=== PATIENT | male | born 1955 | race Caucasian/White ===

== ENCOUNTER 2017-01-21 14:37 | Inpatient (IN) | payer OTHER ==
[~2017-01-21] VITALS: Ht 190.5 cm; Wt 107.3 kg
[2017-01-21] MEDS ORDERED: HydrOXYzine PAMOATE 50 MG CAPSULE PO PRN (17:15)
[2017-01-21] MEDS ORDERED: LOPERAMIDE HCL 2 MG CAPSULE PO PRN (17:15)
[2017-01-21] MEDS ORDERED: QUEtiapine FUMARATE 100 MG TABLET PO PRN (17:15)
[2017-01-21] MEDS ORDERED: ACETAMINOPHEN 325 MG TABLET PO PRN (17:15)
[2017-01-21] MEDS ORDERED: TUBERCULIN, PURIFIED PROTEIN DERIVATIVE 5 TU/0.1 ML SYG ID ONE (17:15)
[2017-01-21] MEDS ORDERED: GuaiFENesin/D-METHORPHAN [SUGAR-FREE] 200-20MG/10 ML SYRUP UDCUP PO PRN (17:15)
[2017-01-21] MEDS ORDERED: PROMETHAZINE HCL 25 MG TABLET PO PRN (17:15)
[2017-01-21] MEDS ORDERED: MAG HYDROX/AL HYDROX/SIMETH ES 30 ML SUSPENSION UDCUP PO PRN (17:15)
[2017-01-21] MEDS ORDERED: MAGNESIUM HYDROXIDE SUSPENSION 30 ML UDCUP PO PRN (17:15)
[2017-01-21] MEDS ORDERED: DULO30CA2 PO (17:39)
[2017-01-21] MEDS ORDERED: ATOR20TA86 PO (17:39)
[2017-01-21] MEDS ORDERED: HYDR25TA PO (17:39)
[2017-01-21] MEDS ORDERED: TAMS0.4C32 PO (17:39)
[2017-01-21] MEDS ORDERED: DIVA500T52 PO (17:39)
[2017-01-21] MEDS ORDERED: QUET25TA PO (17:39)
[2017-01-21] MEDS ORDERED: INFLUENZA VIRUS VACCINE QVS 2016-17 (3YR+)/PF 60 MCG/0.5 ML SYRINGE IM ONE (18:00)
[2017-01-21 18:42] VITALS: BP 142/76
[2017-01-21] MEDS ORDERED: POTASSIUM CHLORIDE 20 MEQ ER TABLET PO ONE (19:30)
[2017-01-21] MEDS: THIAMINE HCL 100 MG TABLET PO SCH (20:46)
[2017-01-22 00:56] VITALS: BP 159/99
[2017-01-22] MEDS: LORazepam 2 MG TABLET PO PRN ×3 (01:11→17:46)
[2017-01-22 08:20] LABS: BASOPHILS % (AUTO) 0.4 % (0.0-2.0); EOSINOPHILS % (AUTO) 1.3 % (1.0-6.0); HEMATOCRIT 42.8 % (41-53); HEMOGLOBIN 14.4 g/dL (13.5-17.5); LYMPHOCYTES # (AUTO) 1.2 K/uL (1.0-4.8); LYMPHOCYTES % (AUTO) 20.1 % (22.0-44.0); MEAN CORPUSCULAR HEMOGLOBIN 30.1 pg (26.0-34.0); MEAN CORPUSCULAR HGB CONC 33.7 G/dL (31.0-37.0); MEAN CORPUSCULAR VOLUME 89 fL (80-100); MONOCYTES # (AUTO) 0.6 K/uL (0.1-1.0); NEUTROPHILS # (AUTO) 3.9 K/uL (1.8-7.7); NEUTROPHILS % (AUTO) 67.2 % (40.0-70.0); PLATELET COUNT (AUTO) 255 K/uL (150-450); RED BLOOD CELL COUNT(AUTO) 4.79 MIL/uL (4.50-5.90); RED CELL DISTRIBUTION WIDTH 14.2 % (11.5-14.5); WHITE BLOOD COUNT (AUTO) 5.9 K/uL (4.5-11.0)
[2017-01-22 08:24] VITALS: BP 133/88
[2017-01-22] MEDS: ATORVASTATIN CALCIUM 20 MG TABLET PO SCH (09:27)
[2017-01-22] MEDS: FOLIC ACID 1 MG TABLET PO SCH (09:27)
[2017-01-22] MEDS: HYDROCHLOROTHIAZIDE 25 MG TABLET PO SCH (09:27)
[2017-01-22] MEDS: TAMSULOSIN HCL 0.4 MG CAPSULE PO SCH (09:27)
[2017-01-22] MEDS: THIAMINE HCL 100 MG TABLET PO SCH ×2 (09:28→17:46)
[2017-01-22] MEDS: MULTIVITAMINS WITH MINERALS, THERAPEUTIC TABLET PO SCH (09:28)
[2017-01-22 09:38] LABS: ALANINE AMINOTRANSFERASE 23 U/L (12-78); ALBUMIN 3.7 g/dL (3.4-5.0); ANION GAP 8 mmol/L (8-16); ASPARTATE AMINOTRANSFERASE 25 U/L (15-37); BILIRUBIN,TOTAL 0.4 mg/dL (0.1-1.0); CALCIUM, TOTAL 8.8 mg/dL (8.8-10.5); CARBON DIOXIDE 28 mmol/L (22-29); CHLORIDE 105 mmol/L (98-107); CHOL/HDL RATIO 2.9 (4.2-7.3); CREATININE 0.97 mg/dL (0.60-1.30); GLOMERULAR FILTR. RATE CALC > 60 mL/min (>60); POTASSIUM 4.5 mmol/L (3.5-5.1); SODIUM SERUM 141 mmol/L (136-145); TOTAL PROTEIN, SERUM 7.6 g/dL (6.4-8.2); UREA NITROGEN, BLOOD 17 mg/dL (7-18)
[2017-01-22 09:41] LABS: HEMOGLOBIN A1C 5.5 % (4.5-6.2)
[2017-01-22] MEDS ORDERED: OLANZapine 5 MG RAPDIS TABLET PO PRN (11:45)
[2017-01-22 16:00] VITALS: BP 139/92
[2017-01-22 19:30] VITALS: BP 138/84
[2017-01-22] MEDS: ZOLPIDEM TARTRATE 10 MG TABLET PO PRN (20:00)
[2017-01-22] MEDS: DIVALPROEX SODIUM 500 MG ER TABLET PO SCH (20:00)
[2017-01-22] MEDS: OLANZapine 5 MG RAPDIS TABLET PO SCH (20:00)
[2017-01-23 07:25] VITALS: BP 135/90
[2017-01-23 08:11] VITALS: BP 137/79
[2017-01-23] MEDS: HYDROCHLOROTHIAZIDE 25 MG TABLET PO SCH (09:52)
[2017-01-23] MEDS: MULTIVITAMINS WITH MINERALS, THERAPEUTIC TABLET PO SCH (09:52)
[2017-01-23] MEDS: THIAMINE HCL 100 MG TABLET PO SCH ×2 (09:52→17:04)
[2017-01-23] MEDS: FOLIC ACID 1 MG TABLET PO SCH (09:52)
[2017-01-23] MEDS: TAMSULOSIN HCL 0.4 MG CAPSULE PO SCH (09:52)
[2017-01-23] MEDS: ATORVASTATIN CALCIUM 20 MG TABLET PO SCH (09:52)
[2017-01-23] MEDS: LORazepam 2 MG TABLET PO PRN ×3 (09:53→20:39)
[2017-01-23] MEDS ORDERED: DIVA500T52 PO (14:05)
[2017-01-23] MEDS ORDERED: OLAN5Z PO (14:05)
[2017-01-23 16:00] VITALS: BP 138/78
[2017-01-23] MEDS: OLANZapine 5 MG RAPDIS TABLET PO SCH (20:39)
[2017-01-23] MEDS: DIVALPROEX SODIUM 500 MG ER TABLET PO SCH (20:39)
[2017-01-23] MEDS: ZOLPIDEM TARTRATE 10 MG TABLET PO PRN (20:39)
[2017-01-24 07:02] VITALS: BP 142/92
[2017-01-24 08:12] VITALS: BP 139/80
[2017-01-24] MEDS: TAMSULOSIN HCL 0.4 MG CAPSULE PO SCH (09:56)
[2017-01-24] MEDS: THIAMINE HCL 100 MG TABLET PO SCH (09:56)
[2017-01-24] MEDS: HYDROCHLOROTHIAZIDE 25 MG TABLET PO SCH (09:56)
[2017-01-24] MEDS: ATORVASTATIN CALCIUM 20 MG TABLET PO SCH (09:56)
[2017-01-24] MEDS: FOLIC ACID 1 MG TABLET PO SCH (09:56)
[2017-01-24] MEDS: MULTIVITAMINS WITH MINERALS, THERAPEUTIC TABLET PO SCH (09:56)
== END 2017-01-24 14:15 | disposition home or self-care (01) | DRG 885 ==
LOC: B3A 17:41
PROVIDERS: ADMIT Psychiatry & Neurology Psychiatry; ATTEND Psychiatry & Neurology Psychiatry
PROC: 3E0234Z Introduction of Serum, Toxoid and Vaccine into Muscle, Percutaneous Approach (ICD-10-PCS; principal; 2017-01-22)
DX: F31.2 Bipolar disorder, current episode manic severe with psychotic features (principal); N40.0 Benign prostatic hyperplasia without lower urinary tract symptoms; F90.9 Attention-deficit hyperactivity disorder, unspecified type; I10 Essential (primary) hypertension; E78.00 Pure hypercholesterolemia, unspecified; E78.5 Hyperlipidemia, unspecified; Z23 Encounter for immunization; Z91.19 Patient's noncompliance with other medical treatment and regimen; Z79.899 Other long term (current) drug therapy; Z91.5 Personal history of self-harm
CPT/HCPCS: 83036; 84439; 84443; 86592; 87081; 90471

== ENCOUNTER 2017-01-31 10:02 | Inpatient (IN) | payer OTHER ==
[~2017-01-31] VITALS: Ht 190.5 cm; Wt 102.1 kg
[~2017-01-31 10:02] MED LIST: ATOR20TA86 PO; DIVA500T52 PO; OLAN5Z PO; TAMS0.4C32 PO
[2017-01-31 12:57] VITALS: BP 137/100
[2017-01-31] MEDS ORDERED: PROMETHAZINE HCL 25 MG TABLET PO PRN (13:30)
[2017-01-31] MEDS ORDERED: GuaiFENesin/D-METHORPHAN [SUGAR-FREE] 200-20MG/10 ML SYRUP UDCUP PO PRN (13:30)
[2017-01-31] MEDS ORDERED: MAGNESIUM HYDROXIDE SUSPENSION 30 ML UDCUP PO PRN (13:30)
[2017-01-31] MEDS ORDERED: LOPERAMIDE HCL 2 MG CAPSULE PO PRN (13:30)
[2017-01-31] MEDS ORDERED: ACETAMINOPHEN 325 MG TABLET PO PRN (13:30)
[2017-01-31] MEDS ORDERED: MAG HYDROX/AL HYDROX/SIMETH ES 30 ML SUSPENSION UDCUP PO PRN (13:30)
[2017-01-31] MEDS ORDERED: HYDROCHLOROTHIAZIDE 25 MG TABLET PO SCH (14:00)
[2017-01-31] MEDS ORDERED: DIVA500T52 PO (14:12)
[2017-01-31] MEDS ORDERED: HYDR25TA PO (14:12)
[2017-01-31] MEDS ORDERED: OLAN5Z PO (14:12)
[2017-01-31] MEDS: HYDROCHLOROTHIAZIDE 25 MG TABLET PO SCH (15:14)
[2017-01-31] MEDS ORDERED: PNEUMOCOCCAL VACCINE POLYVALENT 0.5 ML VIAL [PPSV23] IM ONE (15:30)
[2017-01-31 16:00] VITALS: BP 140/82
[2017-01-31 18:01] VITALS: BP 139/95
[2017-01-31] MEDS: THIAMINE HCL 100 MG TABLET PO SCH (20:39)
[2017-01-31] MEDS: OLANZapine 5 MG RAPDIS TABLET PO SCH (20:39)
[2017-01-31] MEDS: ZOLPIDEM TARTRATE 10 MG TABLET PO PRN (20:40)
[2017-01-31] MEDS ORDERED: DIVALPROEX SODIUM 500 MG ER TABLET PO SCH (21:00)
[2017-02-01 06:44] LABS: BASOPHILS % (AUTO) 0.3 % (0.0-2.0); HEMOGLOBIN 14.6 g/dL (13.5-17.5); LYMPHOCYTES # (AUTO) 1.3 K/uL (1.0-4.8); LYMPHOCYTES % (AUTO) 15.3 % (22.0-44.0); MEAN CORPUSCULAR HEMOGLOBIN 29.4 pg (26.0-34.0); MEAN CORPUSCULAR HGB CONC 33.1 G/dL (31.0-37.0); MEAN CORPUSCULAR VOLUME 89 fL (80-100); MONOCYTES # (AUTO) 0.8 K/uL (0.1-1.0); MONOCYTES % (AUTO) 9.4 % (2.0-9.0); NEUTROPHILS # (AUTO) 6.1 K/uL (1.8-7.7); PLATELET COUNT (AUTO) 318 K/uL (150-450); RED BLOOD CELL COUNT(AUTO) 4.95 MIL/uL (4.50-5.90); RED CELL DISTRIBUTION WIDTH 14.1 % (11.5-14.5); WHITE BLOOD COUNT (AUTO) 8.5 K/uL (4.5-11.0)
[2017-02-01 07:09] LABS: ALANINE AMINOTRANSFERASE 47 U/L (12-78); ALBUMIN 3.9 g/dL (3.4-5.0); ANION GAP 10 mmol/L (8-16); ASPARTATE AMINOTRANSFERASE 34 U/L (15-37); BILIRUBIN,TOTAL 0.6 mg/dL (0.1-1.0); CALCIUM, TOTAL 9.1 mg/dL (8.8-10.5); CARBON DIOXIDE 28 mmol/L (22-29); CHLORIDE 103 mmol/L (98-107); CHOL/HDL RATIO 2.9 (4.2-7.3); CREATININE 1.15 mg/dL (0.60-1.30); GLOMERULAR FILTR. RATE CALC > 60 mL/min (>60); POTASSIUM 3.7 mmol/L (3.5-5.1); SODIUM SERUM 141 mmol/L (136-145); THYROID STIMULATING HORMONE 3.32 uIU/mL (0.36-3.74); TOTAL PROTEIN, SERUM 7.9 g/dL (6.4-8.2); UREA NITROGEN, BLOOD 16 mg/dL (7-18)
[2017-02-01 07:11] LABS: VALPROIC ACID < 3 mcg/mL (50-100)
[2017-02-01 08:00] VITALS: BP 143/109
[2017-02-01] MEDS: HYDROCHLOROTHIAZIDE 25 MG TABLET PO SCH (08:13)
[2017-02-01] MEDS: ATORVASTATIN CALCIUM 20 MG TABLET PO SCH (08:13)
[2017-02-01] MEDS: FOLIC ACID 1 MG TABLET PO SCH (08:13)
[2017-02-01] MEDS: MULTIVITAMINS WITH MINERALS, THERAPEUTIC TABLET PO SCH (08:13)
[2017-02-01] MEDS: TAMSULOSIN HCL 0.4 MG CAPSULE PO SCH (08:13)
[2017-02-01] MEDS: THIAMINE HCL 100 MG TABLET PO SCH ×2 (08:13→16:10)
[2017-02-01] MEDS: IBUPROFEN 800 MG TABLET PO PRN (08:18)
[2017-02-01] MEDS: LORazepam 2 MG TABLET PO PRN ×2 (08:18→15:30)
[2017-02-01] MEDS: OLANZapine 5 MG RAPDIS TABLET PO PRN (08:18)
[2017-02-01 08:22] LABS: HEMOGLOBIN A1C 5.8 % (4.5-6.2)
[2017-02-01] MEDS ORDERED: TAMSULOSIN HCL 0.4 MG CAPSULE PO SCH (09:00)
[2017-02-01] MEDS ORDERED: ATORVASTATIN CALCIUM 20 MG TABLET PO SCH (09:00)
[2017-02-01] MEDS: LISINOPRIL 10 MG TABLET PO SCH ×2 (10:22→16:09)
[2017-02-01 14:37] VITALS: BP 127/83
[2017-02-01 16:31] VITALS: BP 124/76
[2017-02-01] MEDS: OLANZapine 5 MG RAPDIS TABLET PO SCH (20:09)
[2017-02-02] MEDS: LORazepam 2 MG TABLET PO PRN ×2 (01:34→11:31)
[2017-02-02] MEDS: ZOLPIDEM TARTRATE 10 MG TABLET PO PRN ×2 (01:34→20:54)
[2017-02-02 01:51] VITALS: BP 140/72
[2017-02-02] MEDS: MULTIVITAMINS WITH MINERALS, THERAPEUTIC TABLET PO SCH (07:57)
[2017-02-02] MEDS: LISINOPRIL 10 MG TABLET PO SCH ×2 (07:57→16:01)
[2017-02-02] MEDS: THIAMINE HCL 100 MG TABLET PO SCH ×2 (07:58→16:01)
[2017-02-02] MEDS: HYDROCHLOROTHIAZIDE 25 MG TABLET PO SCH (07:58)
[2017-02-02] MEDS: ATORVASTATIN CALCIUM 20 MG TABLET PO SCH (07:59)
[2017-02-02] MEDS: TAMSULOSIN HCL 0.4 MG CAPSULE PO SCH (07:59)
[2017-02-02] MEDS: FOLIC ACID 1 MG TABLET PO SCH (07:59)
[2017-02-02 08:16] VITALS: BP 104/71
[2017-02-02] MEDS: OLANZapine 5 MG RAPDIS TABLET PO PRN (11:31)
[2017-02-02] MEDS: HydrOXYzine PAMOATE 50 MG CAPSULE PO PRN (11:31)
[2017-02-02 18:03] VITALS: BP 137/93
[2017-02-02] MEDS: OLANZapine 5 MG RAPDIS TABLET PO SCH (20:53)
[2017-02-03] MEDS: THIAMINE HCL 100 MG TABLET PO SCH ×2 (07:50→17:23)
[2017-02-03] MEDS: GABAPENTIN 400 MG CAPSULE PO SCH ×3 (07:50→17:23)
[2017-02-03] MEDS: LORazepam 2 MG TABLET PO PRN (07:50)
[2017-02-03] MEDS: IBUPROFEN 800 MG TABLET PO PRN (07:50)
[2017-02-03] MEDS: HydrOXYzine PAMOATE 50 MG CAPSULE PO PRN (07:50)
[2017-02-03] MEDS: LISINOPRIL 10 MG TABLET PO SCH ×2 (07:50→17:23)
[2017-02-03] MEDS: HYDROCHLOROTHIAZIDE 25 MG TABLET PO SCH (07:51)
[2017-02-03] MEDS: FOLIC ACID 1 MG TABLET PO SCH (07:51)
[2017-02-03] MEDS: TAMSULOSIN HCL 0.4 MG CAPSULE PO SCH (07:51)
[2017-02-03] MEDS: ATORVASTATIN CALCIUM 20 MG TABLET PO SCH (07:51)
[2017-02-03] MEDS: MULTIVITAMINS WITH MINERALS, THERAPEUTIC TABLET PO SCH (07:51)
[2017-02-03] MEDS: DULoxetine HCL 60 MG CAPSULE PO SCH (07:52)
[2017-02-03] MEDS: OLANZapine 5 MG RAPDIS TABLET PO PRN (07:54)
[2017-02-03 08:00] VITALS: BP 138/93
[2017-02-03 08:04] VITALS: BP 138/93
[2017-02-03 20:05] VITALS: BP 140/88
[2017-02-03] MEDS: OLANZapine 5 MG RAPDIS TABLET PO SCH (20:51)
[2017-02-04 08:04] VITALS: BP 151/102
[2017-02-04] MEDS: GABAPENTIN 400 MG CAPSULE PO SCH ×2 (08:08→12:10)
[2017-02-04] MEDS: LISINOPRIL 10 MG TABLET PO SCH (08:08)
[2017-02-04] MEDS: FOLIC ACID 1 MG TABLET PO SCH (08:08)
[2017-02-04] MEDS: MULTIVITAMINS WITH MINERALS, THERAPEUTIC TABLET PO SCH (08:08)
[2017-02-04] MEDS: HYDROCHLOROTHIAZIDE 25 MG TABLET PO SCH (08:09)
[2017-02-04] MEDS: THIAMINE HCL 100 MG TABLET PO SCH (08:10)
[2017-02-04] MEDS: DULoxetine HCL 60 MG CAPSULE PO SCH (08:10)
[2017-02-04] MEDS: ATORVASTATIN CALCIUM 20 MG TABLET PO SCH (08:10)
[2017-02-04] MEDS: TAMSULOSIN HCL 0.4 MG CAPSULE PO SCH (08:11)
[2017-02-04] MEDS ORDERED: GABA-533 PO (09:47)
[2017-02-04] MEDS ORDERED: LISI-662 PO (09:56)
[2017-02-04] MEDS ORDERED: LISINOPRIL 20 MG TABLET PO SCH (17:00)
== END 2017-02-04 12:45 | disposition home or self-care (01) | DRG 885 ==
LOC: B3A 13:24 → UNDOADMIN 13:27 → B3A 13:27 → EDSTATUS 13:58 → 3EC 17:10 → B3A 17:10
PROVIDERS: ADMIT Psychiatry & Neurology Psychiatry; ATTEND Psychiatry & Neurology Psychiatry
PROC: 3E0234Z Introduction of Serum, Toxoid and Vaccine into Muscle, Percutaneous Approach (ICD-10-PCS; principal; 2017-01-31)
DX: F31.2 Bipolar disorder, current episode manic severe with psychotic features (principal); F15.20 Other stimulant dependence, uncomplicated; E78.5 Hyperlipidemia, unspecified; F90.9 Attention-deficit hyperactivity disorder, unspecified type; G47.30 Sleep apnea, unspecified; E78.00 Pure hypercholesterolemia, unspecified; S01.419A Laceration without foreign body of unspecified cheek and temporomandibular area, initial encounter; N40.0 Benign prostatic hyperplasia without lower urinary tract symptoms; S00.12XA Contusion of left eyelid and periocular area, initial encounter; Z79.899 Other long term (current) drug therapy; Z91.19 Patient's noncompliance with other medical treatment and regimen; Z23 Encounter for immunization; X58.XXXA Exposure to other specified factors, initial encounter; Y93.89 Activity, other specified; Y92.89 Other specified places as the place of occurrence of the external cause; Y99.8 Other external cause status
CPT/HCPCS: 71020; 83036; 84439; 84443; 86592; 94660

== ENCOUNTER 2017-02-04 18:43 | Emergency (ER) | payer OTHER ==
[~2017-02-04 18:43] MED LIST changes: +GABA-533 PO; +HYDR25TA PO; +LISI-662 PO
== END 2017-02-04 20:00 | disposition left against medical advice (07) ==
LOC: EMS 18:45
DX: Z00.8 Encounter for other general examination (principal); F17.210 Nicotine dependence, cigarettes, uncomplicated; Z53.21 Procedure and treatment not carried out due to patient leaving prior to being seen by health care provider
CPT/HCPCS: 93005